=== PATIENT | male | born 1960 | race Caucasian/White ===

== ENCOUNTER 2020-11-01 12:32 | Emergency (ER) | payer BC | END 2020-11-01 17:28 | disposition home or self-care (01) | LOC: JVIRT 12:32 | DX: U07.1 COVID-19 (principal) | CPT/HCPCS: C9803; G2012-GT; U0003 ==

== ENCOUNTER 2022-02-13 23:41 | Emergency (ER) | payer BC ==
[2022-02-13 23:53] VITALS: BP 159/89; PULSE 88; TEMP 97.7; BMI 25.8
[2022-02-14 01:37] LABS: EPI CELLS 3 /uL (0-25.1); HYALINE CASTS 0 /uL (0-3.1); URINE APPEARANCE CLEAR; URINE BACTERIA 0 /uL (0-1359); URINE BILIRUBIN NEGATIVE (NEGATIVE); URINE COLOR YELLOW; URINE GLUCOSE (UA) NEGATIVE (NEGATIVE); URINE KETONE NEGATIVE (NEGATIVE); URINE LEUK ESTERASE NEGATIVE (NEGATIVE); URINE NITRITE NEGATIVE (NEGATIVE); URINE PROTEIN NEGATIVE (NEGATIVE); URINE RBC 29 /uL (0-23.9); URINE UROBILINOGEN 0.2 mg/dL (0.2-1.0); URINE WBC 2 /uL (0-25.8)
== END 2022-02-14 03:12 | disposition home or self-care (01) ==
LOC: FER 23:41
DX: N40.1 Benign prostatic hyperplasia with lower urinary tract symptoms (principal); R33.8 Other retention of urine
CPT/HCPCS: 81003; 99283-25

== ENCOUNTER 2022-08-18 04:02 | Day surgery (SDC) | payer BC ==
[2022-08-17 12:35] VITALS: BMI 28.1
[2022-08-18] MEDS ORDERED: ONDANSETRON 4 MG/2 ML VIAL ONE (13:40)
[2022-08-18] MEDS ORDERED: MIDAZOLAM HCL 2 MG/2 ML SINGLE DOSE VIAL ONE (13:40)
[2022-08-18] MEDS ORDERED: DEXAMETHASONE SOD PHOSPHATE 4 MG/1 ML VIAL ONE (13:40)
[2022-08-18] MEDS ORDERED: PROPOFOL 40 ML ONE (13:40)
[2022-08-18] MEDS ORDERED: LIDOCAINE HCL/PF (2%) 40 MG/2 ML VIAL ONE (13:41)
[2022-08-18] MEDS ORDERED: SUCCINYLCHOLINE CHLORIDE 200 MG/10 ML SYRINGE ONE (13:41)
[2022-08-18] MEDS ORDERED: ceFAZolin SODIUM 1 GM VIAL ONE (14:05)
[2022-08-18] MEDS ORDERED: SODIUM CHLORIDE 0.9% P/F 10 ML VIAL IJ ONE (14:05)
[2022-08-18] MEDS ORDERED: ceFAZolin SODIUM 1 GM VIAL IVPB ONE (14:07)
[2022-08-18] MEDS ORDERED: KETOROLAC TROMETHAMINE 30 MG/1 ML VIAL ONE (14:09)
[2022-08-18] MEDS ORDERED: LIDOCAINE HCL 2% JELLY 10 ML CARTRIDGE ONE (14:10)
[2022-08-18] MEDS ORDERED: PROPOFOL 20 ML ONE (14:24)
[2022-08-18] MEDS ORDERED: ONDANSETRON 4 MG/2 ML VIAL IVPUSH PRN (16:29)
[2022-08-18] MEDS ORDERED: LACTATED RINGERS SOLUTION 1,000 ML IV SCH (16:30)
[2022-08-18 16:46] VITALS: PULSE 74
[2022-08-18 16:57] VITALS: RESP 20; TEMP 97.3
[2022-08-18 17:17] VITALS: BP 145/85
== END 2022-08-18 17:15 | disposition home or self-care (01) ==
LOC: JASU-SURG 04:02
PROVIDERS: ATTEND Urology
PROC: 0T9B80Z Drainage of Bladder with Drainage Device, Via Natural or Artificial Opening Endoscopic (ICD-10-PCS; 2022-08-18)
PROC: 0VT08ZZ Resection of Prostate, Via Natural or Artificial Opening Endoscopic (ICD-10-PCS; principal; 2022-08-18 13:30)
DX: N40.1 Benign prostatic hyperplasia with lower urinary tract symptoms (principal); R33.8 Other retention of urine; N32.89 Other specified disorders of bladder
CPT/HCPCS: 88305-TC; 94760